=== PATIENT | male | born 1990 | race Caucasian/White ===

== ENCOUNTER 2022-12-19 21:09 | Emergency (ER) | payer SELFPAY ==
[2022-12-19] MEDS ORDERED: Ibuprofen 600 MG Tab PO ONE (21:27)
[2022-12-19] MEDS ORDERED: Diphtheria,Pertussis(Acell),Tetanus Vaccine 0.5 ML Syringe IM ONE (21:27)
== END 2022-12-19 23:23 | disposition home or self-care (01) ==
LOC: MW.ED 21:09
DX: S01.112A Laceration without foreign body of left eyelid and periocular area, initial encounter (principal); S20.211A Contusion of right front wall of thorax, initial encounter; S09.90XA Unspecified injury of head, initial encounter; Z23 Encounter for immunization; Y04.2XXA Assault by strike against or bumped into by another person, initial encounter
CPT/HCPCS: 12013; 70450; 71101; 72125; 90471; 90715; 99284; A9270; 99283